=== PATIENT | female | born 1955 | race Caucasian/White ===

== ENCOUNTER 2024-11-23 06:12 | Inpatient (IN) | payer MEDICARE, OTHER, SELFPAY ==
[2024-11-01 11:12] LABS: Hematocrit 37.9 % (37.0-47.0); Hemoglobin 12.4 g/dL (12.0-16.0); Mean Corp Hgb Conc. 32.7 g/dL (33.0-37.0); Mean Corpuscular Hgb 27.9 pg (27.0-31.0); Mean Corpuscular Volume 85.2 fL (81.0-99.0); Platelet Count 344 10^3/uL (130-400); Red Blood Cell Count 4.45 10^6/uL (4.20-5.40); Red Cell Dist. Width 15.3 % (11.5-14.5); White Blood Cell Count 10.4 10^3/uL (4.8-10.8)
[2024-11-01 11:57] LABS: ALT (SGPT) 23 U/L (0-35); AST (SGOT) 24 U/L (14-36); Albumin 4.3 g/dl (3.5-5.0); Alkaline Phosphatase 59 U/L (38-126); Blood Urea Nitrogen 19 mg/dl (7-17); Calcium 9.7 mg/dl (8.4-10.2); Carbon Dioxide 31 mmol/L (22-30); Chloride 98 mmol/L (98-107); Glucose 69 mg/dl (70-99); Potassium 4.3 mmol/L (3.5-5.1); Sodium 139 mmol/L (135-145); Total Bilirubin 0.5 mg/dl (0.2-1.3); Total Protein 7.1 g/dl (6.3-8.2); eGFR > 60.00
[2024-11-01 13:46] VITALS: BMI 39.3
[2024-11-17 10:11] VITALS: BMI 39.3
[2024-11-23] VITALS (13 sets, daily range): BP systolic 99–150; BP diastolic 58–97; PULSE 83
--- NOTE | 2024-11-23 07:02 | W.PN.UPDATE ---
Update Note
Progress Note Update
R TKA Dr. Yao 11/23/24
PVCs
HTN
HLD
CHF
CAD-RCA stent 70% L Cx
-tele
-decrease IVF rate due to unknown EF
-continue asa and statin uninterrupted
Asthma
[id number] Cpap
-incentive spirometry
-inh
-monitor O2 sats
NIDDM
-SSI Novolog,low dose Lantus, Cefadroxil ppx
[2024-11-23 07:16] LABS: Glucose - Point of Care 112 mg/dl (70-99)
[2024-11-23] MEDS: TYLENOL 650 MG PO ×4 (07:23→20:09)
[2024-11-23] MEDS: CELEBREX 200 MG PO (07:23)
[2024-11-23] MEDS: NORMOSOL-R/PLASMALYTE-A 1000 IV ×2 (07:37→12:06)
--- NOTE | 2024-11-23 07:38 | W.DS.TRANS ---
DC Summary - [facility]
-
Discharge Instructions:
Discharge Diagnosis/Procedures R TKA Dr. Yao 11/23/24
Diet Diabetic, Carb Controlled
Activity As tolerated,With Walker
Driving Restrictions No driving
Bathing Restrictions OK to Shower
Other Services PT
Instructions:
Stand-Alone Forms: Total Hip/Knee Replacement D/C
Changes to Home Medications: Yes
Discharge Medications:
DC Medications w/original date entered in [employer]
ascorbic acid (vitamin C) 500 mg tablet (Vitamin C) 500 mg PO DAILY 11/17/24
aspirin 81 mg capsule 81 mg PO HS 11/17/24
cholecalciferol (vitamin D3) 25 mcg (1,000 unit) tablet (Vitamin D3) 25 mcg PO DAILY 11/17/24
coQ10 (ubiquinol) 100 mg capsule 100 mg PO DAILY 11/17/24
ezetimibe 10 mg tablet 10 mg PO DAILY 11/17/24
fluticasone fur. 100 mcg-umeclid 62.5 mcg-vilant 25 mcg inhalat.powder (Trelegy Ellipta) 1 inh inhalation DAILY 11/17/24
losartan 100 mg-hydrochlorothiazide 25 mg tablet 1 tab PO DAILY 11/17/24
magnesium oxide 400 mg PO HS 11/17/24
metformin 500 mg tablet 500 mg PO BID 11/17/24
metoprolol succinate 50 mg tablet,extended release 24 hr 50 mg PO BID 11/17/24
multivitamin 1 tab PO DAILY 11/17/24
mupirocin 2 % topical ointment 1 applic topical BID 11/17/24
omeprazole 20 mg tablet,delayed release 20 mg PO DAILY 11/17/24
semaglutide 1 mg/dose (4 mg/3 mL) subcutaneous pen injector (Ozempic) 1 mg SC FR 11/17/24
simvastatin 20 mg tablet 20 mg PO QPM 11/17/24
vitamin B complex 1 cap PO DAILY 11/17/24
Saccharomyces boulardii 250 mg capsule (Florastor) 250 mg PO BID #1 cap 11/23/24
acetaminophen 325 mg tablet (Tylenol) 650 mg (2 x 325 mg) PO QID #1 tab 11/23/24
aspirin 325 mg tablet 325 mg PO DAILY blood clot prevention #1 tab 11/23/24
cefadroxil 500 mg capsule 500 mg PO BID infection prevention #14 caps 11/23/24
celecoxib 100 mg capsule 100 mg PO BID Anti-inflammatory #14 caps 11/23/24
docusate sodium 100 mg capsule (Colace) 100 mg PO BID stool softner #1 cap 11/23/24
magnesium hydroxide 400 mg/5 mL oral suspension (Milk of Magnesia) 30 ml PO HS PRN Constipation #1 mL 11/23/24
ondansetron 4 mg disintegrating tablet 4 mg PO Q6H PRN n/v #20 tabs 11/23/24
oxycodone 5 mg tablet 5 mg PO Q6H PRN 1 tab moderate pain, 2 tabs severe pain #30 tabs 11/23/24
sennosides 8.6 mg tablet (Senokot) 17.2 mg (2 x 8.6 mg) PO BID laxative #2 tabs 11/23/24
Home Medication Changes
aspirin 325 mg tablet 325 mg PO DAILY blood clot prevention #1 tab 11/23/24
cefadroxil 500 mg capsule 500 mg PO BID infection prevention #14 caps 11/23/24
celecoxib 100 mg capsule 100 mg PO BID Anti-inflammatory #14 caps 11/23/24
docusate sodium 100 mg capsule (Colace) 100 mg PO BID stool softner #1 cap 11/23/24
magnesium hydroxide 400 mg/5 mL oral suspension (Milk of Magnesia) 30 ml PO HS PRN Constipation #1 mL 11/23/24
ondansetron 4 mg disintegrating tablet 4 mg PO Q6H PRN n/v #20 tabs 11/23/24
oxycodone 5 mg tablet 5 mg PO Q6H PRN 1 tab moderate pain, 2 tabs severe pain #30 tabs 11/23/24
sennosides 8.6 mg tablet (Senokot) 17.2 mg (2 x 8.6 mg) PO BID laxative #2 tabs 11/23/24
Pending Results: No
[2024-11-23] MEDS: ZOFRAN 4 MG IV (09:50)
[2024-11-23 10:46] LABS: Glucose - Point of Care 121 mg/dl (70-99)
[2024-11-23] MEDS: ROXICODONE 5 MG PO (11:28)
[2024-11-23] MEDS: GLUCOPHAGE PO (11:51)
--- NOTE | 2024-11-23 11:53 | PTCARENOTE ---
Pt arrived to [facility] from PACU s/p R TKR. Pt AAOx3, NV intact with mild sensation loss from spinal, R knee dressing C/D/I. 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 Pt states no pain at this time. Oriented to call evans and room, bed locked and in lowest position, call
evans within reach.
[2024-11-23 12:01] LABS: Glucose - Point of Care 143 mg/dl (70-99)
[2024-11-23] MEDS: ANCEF 5 IV (15:34)
[2024-11-23] MEDS: ROXICODONE 10 MG PO ×2 (15:34→22:22)
[2024-11-23 17:16] LABS: Glucose - Point of Care 152 mg/dl (70-99)
[2024-11-23] MEDS: GLUCOPHAGE 1000 MG PO (17:24)
[2024-11-23] MEDS: LIPITOR 10 MG PO (17:24)
[2024-11-23] MEDS: ASPIRIN 325 MG PO (17:24)
[2024-11-23] MEDS: SYMBICORT 80/4.5 MCG INHALER 2 PUFF INH (20:03)
[2024-11-23] MEDS: COLACE 100 MG PO (20:07)
[2024-11-23] MEDS: SENOKOT 17.2 MG PO (20:08)
[2024-11-23] MEDS: ULTRAM 50 MG PO (20:09)
[2024-11-23] MEDS: TORADOL 15 MG IV (20:09)
[2024-11-23] MEDS: FLUSH (NSS) 2 FLUSH IV (20:10)
[2024-11-23] MEDS: TOPROL XL 25 MG PO (20:11)
[2024-11-23] MEDS: BACTROBAN 2% OINTMENT 1 APPLIC NASAL (20:39)
[2024-11-23 21:47] LABS: Glucose - Point of Care 128 mg/dl (70-99)
[2024-11-23] MEDS: MAGNESIUM OXIDE 500 MG PO (22:17)
[2024-11-23] MEDS: ZETIA 10 MG PO (22:17)
[2024-11-23] MEDS: PROTONIX 40 MG PO (22:17)
[2024-11-23] MEDS: NEURONTIN 300 MG PO (22:17)
[2024-11-24] MEDS: ANCEF 5 IV (00:10)
[2024-11-24] MEDS: TYLENOL 650 MG PO ×3 (00:11→08:34)
[2024-11-24] MEDS: FLUSH (NSS) 2 FLUSH IV (00:12)
[2024-11-24 03:00] VITALS: BP 112/62
[2024-11-24] MEDS: ROXICODONE 10 MG PO ×2 (04:39→10:27)
[2024-11-24 07:32] VITALS: BP 112/62
[2024-11-24 07:42] LABS: Glucose - Point of Care 120 mg/dl (70-99)
[2024-11-24] MEDS: SPIRIVA RESPIMAT 2.5 MCG 2 PUFF INH (08:26)
[2024-11-24] MEDS: SYMBICORT 80/4.5 MCG INHALER 2 PUFF INH (08:26)
[2024-11-24] MEDS: COLACE 100 MG PO (08:34)
[2024-11-24] MEDS: ASPIRIN 325 MG PO (08:34)
[2024-11-24] MEDS: GLUCOPHAGE 1000 MG PO (08:34)
[2024-11-24] MEDS: SENOKOT 17.2 MG PO (08:34)
[2024-11-24] MEDS: TOPROL XL 25 MG PO (08:34)
[2024-11-24] MEDS: ULTRAM 50 MG PO (08:34)
[2024-11-24] MEDS: TORADOL 15 MG IV (08:35)
[2024-11-24] MEDS: BACTROBAN 2% OINTMENT 1 APPLIC NASAL (09:11)
--- NOTE | 2024-11-24 09:50 | CM ---
Met with pt at bedside
Pt reports she lives with her in a 2 story home; 1 step to enter, FF set-up
Independent with ADL's, ambulates with quad cane
DME - rolling walker, quad cane, toilet rails, raised toilet
SNF/HH - no past hx
Has ride at discharge
PCP - Luis Guerin
Pharm - [facility]
Given IMM
Has outpatient PT appt scheduled for 11/25 at [facility] [address] Has Rx. Has transportation
Plan - anticipate home with outpatient PT
--- NOTE | 2024-11-24 10:50 | W.PN.ORTHO ---
Today's Communication / Plan
-
d/c
Assessment
.
Distal Motor Intact: Yes
Dressing:
Clean, dry and intact.
Assessment:
PVCs
HTN
HLD
CHF
CAD-RCA stent 70% L Cx
-stable on tele
-decrease IVF rate due to unknown EF
-continue asa and statin uninterrupted
Asthma
[id number] Cpap
-incentive spirometry
-inh
-O2 sats stable on RA
NIDDM
-SSI Novolog,low dose Lantus, Cefadroxil ppx-sugars stable
Plan
.
Surgery / Date: R JAIMIE Yao 11/23/24
DVT Prophylaxis: Aspirin
Activity:
Out of bed.
PT/OT
Discharge Plan: Home w/ Outpatient PT
Subjective
.
.:
Patient resting comfortably.
Vital Signs and Labs
.
Vital Signs and Labs:
Lab Results
11/01/24 10:51
11/01/24 10:51
Temp Pulse Resp BP Pulse Ox
97.2 F 82 16 112/62 97
11/24/24 07:32 11/24/24 09:06 11/24/24 09:06 11/24/24 08:34 11/24/24 09:06
Non-invasive Hgb result: 11.4
Physical Exam
-
HEENT: No pallor, cyanosis, or jaundice. Throat clear.
NECK: Supple. No JVD.
RESPIRATORY: Lungs clear to auscultation.
CVS: S1, S2 normal. RRR.� No murmur, rub or gallop.
ABDOMEN: Soft, non-tender. No distension. BS+/normal.
EXTREMITIES: strength equal, no calf pain with palpation
LUMBER CARRIER: AOx3. No focal deficits. 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
[2024-11-24 11:14] VITALS: BP 120/57
[2024-11-24 11:54] LABS: Glucose - Point of Care 119 mg/dl (70-99)
== END 2024-11-24 12:52 | disposition home or self-care (01) | DRG 470 ==
LOC: 2 SOUTH 06:12
PROVIDERS: ADMITTING PHYSICIAN Orthopaedic Surgery; FAMILY PHYSICIAN Student in an Organized Health Care Education/Training Program; REFERRING PHYSICIAN Internal Medicine Cardiovascular Disease
PROC: 0SRC0J9 Replacement of Right Knee Joint with Synthetic Substitute, Cemented, Open Approach (ICD-10-PCS; 2024-11-23)
DX: M17.11 Unilateral primary osteoarthritis, right knee (principal); Z79.82 Long term (current) use of aspirin; I49.3 Ventricular premature depolarization; I50.9 Heart failure, unspecified; I11.0 Hypertensive heart disease with heart failure; E78.5 Hyperlipidemia, unspecified; I25.10 Atherosclerotic heart disease of native coronary artery without angina pectoris; Z95.5 Presence of coronary angioplasty implant and graft; J45.909 Unspecified asthma, uncomplicated; G47.33 Obstructive sleep apnea (adult) (pediatric); Z91.199 Patient's noncompliance with other medical treatment and regimen due to unspecified reason; E11.65 Type 2 diabetes mellitus with hyperglycemia
CPT/HCPCS: 36415; 73560; 80053; 82962; 83036; 85027; 87070; 94640; 97110; 97116; 97162; 97166; 97530; 97535; C1713; C1776

== ENCOUNTER 2025-08-09 06:11 | Inpatient (IN) | payer MEDICARE, OTHER, SELFPAY ==
--- NOTE | 2025-07-05 12:15 | CM ---
Addendum entered by Zoey Croft RN 07/10/25 14:46:
Demographics: confirmed
Living situation: Lives with
Support Person Post Operatively: , Yogi
History of
VN: NO
SNF: No
Outpatient: Encouraged patient to make outpatient PT appointment, patient plans to use [facility]
Has patient purchased required equipment: yes
PCP: Active
Pharmacy: [facility]
Post Operative Discharge Plan: Outpatient PT, CM encouraged patient to make a outpatient PT appointments.
Addendum entered by Zoey Croft RN 07/07/25 13:07:
Left message.
Original Note:
CM reviewed medical records. CM left message for IA.
[2025-07-25 11:00] LABS: Hematocrit 39.2 % (37.0-47.0); Hemoglobin 12.5 g/dL (12.0-16.0); Mean Corp Hgb Conc. 31.9 g/dL (33.0-37.0); Mean Corpuscular Volume 85.0 fL (81.0-99.0); Platelet Count 333 10^3/uL (130-400); Red Cell Dist. Width 14.9 % (11.5-14.5)
[2025-07-25 12:05] LABS: Glycohemoglobin (HgbA1c) 6.6 % (4.0-5.6)
[2025-07-25 14:09] VITALS: BMI 39.7
[2025-07-25 15:29] LABS: ALT (SGPT) 18 U/L (0-35); AST (SGOT) 20 U/L (14-36); Albumin 4.3 g/dl (3.5-5.0); Alkaline Phosphatase 65 U/L (38-126); Blood Urea Nitrogen 18 mg/dl (7-17); Calcium 10.1 mg/dl (8.4-10.2); Carbon Dioxide 30 mmol/L (22-30); Chloride 101 mmol/L (98-107); Estimated Creatinine Clearance 80 ml/min; Glucose 118 mg/dl (70-99); Potassium 4.7 mmol/L (3.5-5.1); Sodium 140 mmol/L (135-145); Total Protein 7.3 g/dl (6.3-8.2); eGFR > 60.00
[2025-07-25 15:59] VITALS: BMI 39.7
[2025-08-09] VITALS (23 sets, daily range): BP systolic 74–165; BP diastolic 49–89; PULSE 76; BMI 39.7
[2025-08-09 07:23] LABS: Glucose - Point of Care 124 mg/dl (70-99)
[2025-08-09] MEDS: TYLENOL 650 MG PO ×3 (07:24→20:03)
[2025-08-09] MEDS: CELEBREX 200 MG PO (07:24)
[2025-08-09] MEDS: NORMOSOL-R/PLASMALYTE-A 1000 IV ×2 (07:24→12:55)
--- NOTE | 2025-08-09 07:48 | W.PN.ORTHO ---
Today's Communication / Plan
-
d/c when stable
Assessment
.
Assessment:
PVC's.
Hypertension.
Hyperlipidemia.
CHF-unknown EF.
CAD, RCA stent, 70% stenosis LCx, medically treated.
-tele
-continue asa and BB uninterrupted
-decrease IVF rate, monitor volune status
Asthma
Obstructive sleep apnea, noncompliant with CPAP.
-incentive spirometry
-O2 at hs
Non insulin-dependent diabetes, hemoglobin A1c 6.6.
-resume oralmed and + SSI coverage w/ low dose Lantus given hyperglycemic effect of surgery
-Cefadroxil ppx OP Rx
Plan
.
Surgery / Date: L TKA Dr Yao 08/09/25
DVT Prophylaxis: Aspirin
Activity:
Out of bed.
PT/OT
Discharge Plan: Home w/ Outpatient PT
Vital Signs and Labs
.
Vital Signs and Labs:
Lab Results
07/25/25 10:27
07/25/25 10:27
Temp Pulse Resp BP Pulse Ox
98.2 F 66 16 165/71 100
08/09/25 07:07 08/09/25 07:07 08/09/25 07:07 08/09/25 07:07 08/09/25 07:07
--- NOTE | 2025-08-09 08:11 | W.DS.TRANS ---
DC Summary - [facility]
-
Discharge Instructions:
Discharge Diagnosis/Procedures L TKA Dr Yao 08/09/25
Diet Diabetic, Carb Controlled
Activity With Walker
Driving Restrictions No driving
Bathing Restrictions OK to Shower
Other Services PT
Instructions:
Stand-Alone Forms: Total Hip/Knee Replacement D/C
Changes to Home Medications: Yes
Discharge Medications:
DC Medications w/original date entered in [employer]
ascorbic acid (vitamin C) 500 mg tablet (Vitamin C) 500 mg PO DAILY Supplement 11/17/24
cholecalciferol (vitamin D3) 25 mcg (1,000 unit) tablet (Vitamin D3) 25 mcg PO DAILY Supplement 11/17/24
coQ10 (ubiquinol) 100 mg capsule 100 mg PO DAILY Supplement 11/17/24
Held on 08/09/25. Instructions: Resume on 08/17/25.
ezetimibe 10 mg tablet 10 mg PO DAILY High Cholesterol 11/17/24
magnesium oxide 400 mg PO HS Supplement 11/17/24
metformin 500 mg tablet 500 mg PO BID Diabetes 11/17/24
metoprolol succinate 50 mg tablet,extended release 24 hr 50 mg PO BID Heart Disease/Condition 11/17/24
omeprazole 20 mg tablet,delayed release 20 mg PO DAILY Gastrointestinal Issue 11/17/24
simvastatin 20 mg tablet 20 mg PO QPM High Cholesterol 11/17/24
vitamin B complex 1 cap PO DAILY Supplement 11/17/24
acetaminophen 325 mg tablet (Tylenol) 650 mg (2 x 325 mg) PO QID #1 tab 11/23/24
Cranberry-Probiotic 1 cap PO DAILY 07/24/25
apple cider vinegar 1 cap PO DAILY 07/24/25
multivitamin with iron 1 tab PO DAILY 07/24/25
Held on 08/09/25. Instructions: Resume on 08/17/25.
mupirocin 2 % topical ointment 1 applic topical BID infection prevention #1 tube 07/24/25
tramadol 50 mg tablet 100 mg PO DAILY 07/24/25
cefadroxil 500 mg capsule 500 mg PO BID infection prevention #14 caps 07/25/25
celecoxib 200 mg capsule 200 mg PO DAILY Anti-inflammatory #14 caps 07/25/25
gabapentin 300 mg capsule 300 mg PO HS sleep/pain #10 caps 07/25/25
hydromorphone 2 mg tablet 2 - 4 mg (1 - 2 x 2 mg) PO Q6H PRN 1 tab moderate pain, 2 severe #30 tabs 07/25/25
ondansetron 4 mg disintegrating tablet 4 mg PO Q6H PRN n/v #20 tabs 07/25/25
Saccharomyces boulardii 250 mg capsule (Florastor) 250 mg PO BID #1 cap 08/09/25
aspirin 325 mg tablet 325 mg PO DAILY blood clot prevention #1 tab 08/09/25
docusate sodium 100 mg capsule (Colace) 100 mg PO BID stool softner #1 cap 08/09/25
losartan 100 mg-hydrochlorothiazide 25 mg tablet 1 tab PO DAILY Blood Pressure #0 tabs 08/09/25
magnesium hydroxide 400 mg/5 mL oral suspension (Milk of Magnesia) 30 ml PO HS PRN constipation #1 mL 08/09/25
sennosides 8.6 mg tablet (Senokot) 17.2 mg (2 x 8.6 mg) PO BID laxative #2 tabs 08/09/25
Home Medication Changes
cefadroxil 500 mg capsule 500 mg PO BID infection prevention #14 caps 07/25/25
celecoxib 200 mg capsule 200 mg PO DAILY Anti-inflammatory #14 caps 07/25/25
gabapentin 300 mg capsule 300 mg PO HS sleep/pain #10 caps 07/25/25
hydromorphone 2 mg tablet 2 - 4 mg (1 - 2 x 2 mg) PO Q6H PRN 1 tab moderate pain, 2 severe #30 tabs 07/25/25
ondansetron 4 mg disintegrating tablet 4 mg PO Q6H PRN n/v #20 tabs 07/25/25
Saccharomyces boulardii 250 mg capsule (Florastor) 250 mg PO BID #1 cap 08/09/25
aspirin 325 mg tablet 325 mg PO DAILY blood clot prevention #1 tab 08/09/25
docusate sodium 100 mg capsule (Colace) 100 mg PO BID stool softner #1 cap 08/09/25
losartan 100 mg-hydrochlorothiazide 25 mg tablet 1 tab PO DAILY Blood Pressure #0 tabs 08/09/25
magnesium hydroxide 400 mg/5 mL oral suspension (Milk of Magnesia) 30 ml PO HS PRN constipation #1 mL 08/09/25
sennosides 8.6 mg tablet (Senokot) 17.2 mg (2 x 8.6 mg) PO BID laxative #2 tabs 08/09/25
Pending Results: No
[2025-08-09 09:29] LABS: Glucose - Point of Care 143 mg/dl (70-99)
[2025-08-09] MEDS: DILAUDID 2 MG PO ×2 (09:36→16:05)
[2025-08-09] MEDS: NOVOLOG FLEXPEN-MODERATE RESISTANCE SC (13:01)
[2025-08-09] MEDS: LANTUS SC (13:09)
[2025-08-09] MEDS: GLUCOPHAGE PO (13:09)
[2025-08-09] MEDS: ZETIA 10 MG PO (13:34)
[2025-08-09] MEDS: ULTRAM 25 MG PO ×3 (13:35→22:31)
[2025-08-09] MEDS: TYLENOL PO (13:37)
--- NOTE | 2025-08-09 13:41 | PTCARENOTE ---
Received patient from PACU around 1245 via bed in stable condition. Patient denied pain at that time. + movement +sensation LLE. Patient oriented to room. Call evans in reach.
[2025-08-09] MEDS: ANCEF 5 IV (16:06)
[2025-08-09] MEDS: LANTUS 0.05 UNITS SC (16:08)
[2025-08-09] MEDS: NOVOLOG FLEXPEN-MODERATE RESISTANCE 3 UNITS SC (16:08)
[2025-08-09] MEDS: GLUCOPHAGE 500 MG PO (16:09)
[2025-08-09 16:10] LABS: Glucose - Point of Care 219 mg/dl (70-99)
[2025-08-09] MEDS: ASPIRIN 325 MG PO (17:47)
[2025-08-09] MEDS: LIPITOR 10 MG PO (17:48)
[2025-08-09] MEDS: SENOKOT 17.2 MG PO (20:01)
[2025-08-09] MEDS: COLACE 100 MG PO (20:01)
[2025-08-09] MEDS: BACTROBAN 2% OINTMENT 1 APPLIC NASAL (20:01)
[2025-08-09] MEDS: DECADRON 4 MG IV (20:02)
[2025-08-09] MEDS: TORADOL 15 MG IV (20:03)
[2025-08-09] MEDS: TOPROL XL 25 MG PO (20:04)
[2025-08-09 21:43] LABS: Glucose - Point of Care 149 mg/dl (70-99)
[2025-08-09] MEDS: MAGNESIUM OXIDE 400 MG PO (22:30)
[2025-08-09] MEDS: PROTONIX 40 MG PO (22:30)
[2025-08-09] MEDS: NEURONTIN 300 MG PO (22:30)
[2025-08-10] MEDS: TYLENOL 650 MG PO ×3 (00:33→08:04)
[2025-08-10] MEDS: ANCEF 5 IV (00:33)
[2025-08-10 03:09] VITALS: BP 155/77
[2025-08-10 07:25] LABS: Glucose - Point of Care 198 mg/dl (70-99)
[2025-08-10 07:35] VITALS: BP 134/65
[2025-08-10] MEDS: COLACE 100 MG PO (08:02)
[2025-08-10] MEDS: SENOKOT 17.2 MG PO (08:02)
[2025-08-10] MEDS: TORADOL 15 MG IV (08:02)
[2025-08-10] MEDS: DECADRON 4 MG IV (08:02)
[2025-08-10] MEDS: ZETIA 10 MG PO (08:02)
[2025-08-10] MEDS: GLUCOPHAGE 500 MG PO (08:02)
[2025-08-10] MEDS: TOPROL XL PO (08:03)
[2025-08-10] MEDS: ULTRAM 25 MG PO (08:03)
[2025-08-10] MEDS: BACTROBAN 2% OINTMENT 1 APPLIC NASAL (08:03)
[2025-08-10] MEDS: ASPIRIN 325 MG PO (08:03)
[2025-08-10] MEDS: NOVOLOG FLEXPEN-MODERATE RESISTANCE 1 UNITS SC (08:22)
[2025-08-10] MEDS: LANTUS 0.05 UNITS SC (08:22)
--- NOTE | 2025-08-10 08:37 | CM ---
Cm met with patient in room. Patient made appointment at [facility] for 08/11. IMM given.
PLAN: Outpatient PT
[2025-08-10 09:07] VITALS: BP 147/70; PULSE 70; O2SAT 99
[2025-08-10 09:59] VITALS: BP 147/70; PULSE 70; O2SAT 99
--- NOTE | 2025-08-10 10:11 | W.PN.ORTHO ---
Today's Communication / Plan
-
d/c
Assessment
.
Distal Motor Intact: Yes
Dressing:
Clean, dry and intact.
Assessment:
PVC's.
Hypertension.
Hyperlipidemia.
CHF-unknown EF.
CAD, RCA stent, 70% stenosis LCx, medically treated.
-stable on tele
-continue asa and BB uninterrupted
-decrease IVF rate, volune status stable
Asthma
Obstructive sleep apnea, noncompliant with CPAP.
-incentive spirometry
-O2 at hs
-sats stable on RA
Non insulin-dependent diabetes, hemoglobin A1c 6.6.
-resume oral med and + SSI coverage w/ low dose Lantus given hyperglycemic effect of surgery
-Cefadroxil ppx OP Rx
-sugars controlled POD#1
Plan
.
Surgery / Date: L TKA Dr Yao 08/09/25
DVT Prophylaxis: Aspirin
Activity:
Out of bed.
PT/OT
Discharge Plan: Home w/ Outpatient PT
Subjective
.
.:
Patient resting comfortably.
Vital Signs and Labs
.
Vital Signs and Labs:
Lab Results
07/25/25 10:27
07/25/25 10:27
Temp Pulse Resp BP Pulse Ox
97.6 F 75 16 134/65 95
08/10/25 07:35 08/10/25 08:03 08/10/25 07:35 08/10/25 08:03 08/10/25 07:35
Non-invasive Hgb result: 12.3
Physical Exam
-
HEENT: No pallor, cyanosis, or jaundice. Throat clear.
NECK: Supple. No JVD.
RESPIRATORY: Lungs clear to auscultation.
CVS: S1, S2 normal. RRR.� No murmur, rub or gallop.
ABDOMEN: Soft, non-tender. No distension. BS+/normal.
EXTREMITIES: strength equal, no calf pain with palpation
ARCHITECT INTERNSHIP: AOx3. No focal deficits. intake coordinator grossly intact
[2025-08-10 11:30] VITALS: BP 146/81
== END 2025-08-10 12:10 | disposition home or self-care (01) | DRG 470 ==
LOC: 2 SOUTH 06:11
PROVIDERS: ADMITTING PHYSICIAN Orthopaedic Surgery; FAMILY PHYSICIAN Student in an Organized Health Care Education/Training Program; REFERRING PHYSICIAN Internal Medicine Cardiovascular Disease
PROC: 0SRD0J9 Replacement of Left Knee Joint with Synthetic Substitute, Cemented, Open Approach (ICD-10-PCS; 2025-08-09)
DX: M17.12 Unilateral primary osteoarthritis, left knee (principal); E66.9 Obesity, unspecified; Z68.39 Body mass index [BMI] 39.0-39.9, adult; I49.3 Ventricular premature depolarization; I50.9 Heart failure, unspecified; I11.0 Hypertensive heart disease with heart failure; E78.5 Hyperlipidemia, unspecified; I25.10 Atherosclerotic heart disease of native coronary artery without angina pectoris; J45.909 Unspecified asthma, uncomplicated; G47.33 Obstructive sleep apnea (adult) (pediatric); E11.9 Type 2 diabetes mellitus without complications; Z79.84 Long term (current) use of oral hypoglycemic drugs; K21.9 Gastro-esophageal reflux disease without esophagitis; Z91.199 Patient's noncompliance with other medical treatment and regimen due to unspecified reason; Z79.82 Long term (current) use of aspirin
CPT/HCPCS: 36415; 73560; 80053; 82962; 83036; 85027; 87070; 93005; 97110; 97162; 97166; 97530; 97535; C1713; C1776